=== PATIENT | male | born 1965 | race Caucasian/White ===

== ENCOUNTER → 2019-12-30 | Outpatient (CLI) | payer BC ==
--- NOTE | 2019-12-30 15:04 | Diagnostic Imaging Report ---
INDICATION: Lower back pain. COMPARISON: None. EXAMINATION: Frontal and lateral views of the lumbar spine were obtained. FINDINGS: Lumbar spine shows preservation and normal static alignment. There is no significant anterolisthesis or retrolisthesis. There is no evidence of jumped facets. Vertebral body heights are maintained. There is no acute fracture. Multilevel degenerative changes are noted, greatest at the L3-L4 level where there is intervertebral disc height loss with endplate sclerosis and osteophyte formations. IMPRESSION: 1. No acute fracture or dislocation in the lumbar spine. 2. Multilevel degenerative changes, greatest at L3-L4. Dictated by: Dictated on workstation # [id number]
== END ==
LOC: RAD FS 13:27
PROVIDERS: ATTEND Nurse Practitioner Family
DX: M47.816 Spondylosis without myelopathy or radiculopathy, lumbar region (principal)
CPT/HCPCS: 72100

== ENCOUNTER 2021-06-11 08:48 | Emergency (ER) | payer BC ==
[~2021-06-11] VITALS: Ht 177.8 cm; Wt 86.2 kg
--- NOTE | 2021-06-11 09:11 | ED Lower Extremity ---
General Stated Complaint: RT LEG MUSCLE SPASM History of Present Illness Date Seen by Provider: Jun 11, 2021 Time Seen by Provider: 08:54 Initial Comments 56 yr M with PMH of Chronic back issues, is here with c/o right sided lower back and buttock and hip pain which began on Friday evening and worsened on Friday morning. 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 Patient went to urgent care for pain control and was given a Toradol injection which did not alleviate the pain as much as he had expected. An x-ray was not done in urgent care at that time. The last time the patient had imaging of the spine, was 2 years ago. Patient states that he has difficulty bearing weight on the right lower extremity and has 10 out of 10 pain. Patient took ibuprofen 600 mg today morning, as well as gabapentin which he normally takes, and it has not relived his pain. He usually takes meloxicam for severe back pain but he has run out of that medication. Denies falls, injury, bladder or bowel dysfunction, sensory loss, saddle anesthesia, numbness, headache, visual disturbances. Allergies and Home Medications Allergies Coded Allergies: No Known Drug Allergies (Unverified , 06/11/21) Patient Home Medication List Home Medication List Reviewed: Yes Review of Systems Constitutional: no symptoms reported EENTM: no symptoms reported Respiratory: no symptoms reported Cardiovascular: no symptoms reported Gastrointestinal: no symptoms reported Genitourinary: no symptoms reported Musculoskeletal: muscle pain, muscle stiffness, muscle cramps Skin: no symptoms reported Psychiatric/Neurological: No Symptoms Reported Physical Exam Vital Signs Vital Signs - First Documented 06/11/21 06/11/21 08:55 13:13 Temp 37.4 Pulse 117 Resp 20 B/P (MAP) 181/103 (129) Pulse Ox 98 O2 Delivery Room Air Capillary Refill : Height, Weight, BMI Height: '" Weight: lbs. oz. kg; BMI Method: General Appearance: no apparent distress HEENT: PERRL/EOMI, normal ENT inspection, TMs normal, pharynx normal Neck: non-tender, full range of motion, supple, normal inspection Cardiovascular: normal peripheral pulses, regular rate, rhythm (fluctuating rate is between 60's- 90's. ) Respiratory: chest non-tender, lungs clear, normal breath sounds, no respiratory distress, no accessory muscle use Gastrointestinal: normal bowel sounds, non tender, soft, no organomegaly Back: normal inspection, no CVA tenderness, no vertebral tenderness Neurologic/Tendon: normal sensation, normal motor functions, normal tendon functions, responds to pain Neurologic/Psychiatric: temple meat cutter II-XII nml as tested, no motor/sensory deficits, alert, normal mood/affect Skin: normal color Lymphatic: no adenopathy Progress/Results/Core Measures Results/Orders My Orders Orders - KARYN MUNROE MD Lumbar Spine 2 Or 3 View (06/11/21 09:20) Pelvis With Right Hip 2-3 View (06/11/21 09:20) Oxycodone/Apap 5/325mg Tablet (Percocet (06/11/21 09:30) Lorazepam Tablet (Ativan Tablet) (06/11/21 09:51) Lorazepam Tablet (Ativan Tablet) (06/11/21 10:18) Dexamethasone Injection (Decadron Inje (06/11/21 11:30) Medications Given in ED Current Medications Medications Dose Ordered Sig/Fernanda Route Start Time Stop Time Status Last Admin Dose Admin Dexamethasone Sodium Phosphate 10 mg ONCE ONCE IV 06/11/21 11:30 06/11/21 11:31 DC 06/11/21 11:31 10 MG Vital Signs/I&O 06/11/21 06/11/21 08:55 13:13 Temp 37.4 Pulse 117 79 Resp 20 16 B/P (MAP) 181/103 (129) 135/89 Pulse Ox 98 O2 Delivery Room Air Room Air Progress Progress Note : Progress Note 1. PYRIFORMIS SYNDROME/ SCIATICA: -X-rays lumbar spine and hip does not show any acute changes. -Percocet/dexamethasone injection in the ER has given the patient relief from pain. -Advised to switch from ibuprofen to naproxen twice daily and add Tylenol 650 mg every 4 hours, lidocaine patches. Continue gabapentin and methocarbamol as prescribed by PCP. -Follow-up with PCP -There are no red flags for cord compression: no saddle anesthesia no bladder or bowel dysfunction -The patient was seen in the ED, and treated appropriately to presentation at a specific point in time. Patient is informed that there is a possibility that disease and illness can evolve and change in acuity rapidly or slowly after patient is discharged from the ER. Precautionary advice given to the patient for immediate return to ER if symptoms worsen or do not resolve, and to seek emergency care sooner rather than later. Pt also advised on the importance of PCP follow up and compliance with management and follow up plan. Pt verbally expressed understanding. Departure Impression Primary Impression: Pyriformis syndrome Qualified Codes: G57.01 - Lesion of sciatic nerve, right lower limb Additional Impression: Chronic right-sided low back pain with right-sided sciatica Disposition: HOME, SELF-CARE Condition: Improved Departure-Patient Inst. Referrals: [facility] (PCP) Primary Care Physician ALEIDA ANAYA APRN (Family) Primary Care Physician Patient Instructions: CHRONIC PAIN KARYN MUNROE MD Jun 11, 2021 09:11
[2021-06-11] MEDS ORDERED: oxyCODONE/APAP 5/325MG (PERCOCET 5) TABLET PO ONE (09:30)
[2021-06-11] MEDS ORDERED: LORazepam 1 MG (ATIVAN) TAB ONE (09:51)
--- NOTE | 2021-06-11 10:12 | Diagnostic Imaging Report ---
INDICATION: Right leg pain COMPARISON: None. FINDINGS: AP view of the pelvis and 2 dedicated radiographic views of the right hip were obtained. There is no fracture, dislocation, bone destruction, or radiopaque foreign body. The visualized pelvic osseous structures and the SI joints demonstrate no acute fracture or dislocation. There is no bone destruction or radiopaque foreign body. The surrounding soft tissue structures are unremarkable. IMPRESSION: 1. No acute fracture or dislocation in the pelvis or right hip. Dictated by: Dictated on workstation # [id number]
--- NOTE | 2021-06-11 10:17 | Diagnostic Imaging Report ---
EXAMINATION: Lumbar spine at 9:42 AM. INDICATION: Back pain. TECHNIQUE: Three views were obtained. FINDINGS: As noted on the prior exam of 12/30/2019, there is degenerative disc and bony disease at L3-L4, L4-L5, and L5-S1. The degenerative changes at these levels do not appear to have changed significantly. There is only mild degenerative disease at L1-L2 and L2-L3. There is no fracture or acute bony abnormality appreciated. There is no sign of a paraspinal mass. The sacroiliac joints are symmetrical and within normal limits. IMPRESSION: 1. There is no evidence for an acute bony abnormality. 2. The degenerative disc and bony disease involving the lower lumbar spine seen previously does not appear to have progressed significantly; however, if there is clinical concern regarding spinal stenosis or nerve root encroachment, then an MRI would be recommended for further study. Dictated by: Dictated on workstation # [id number]
[2021-06-11] MEDS ORDERED: LORazepam 0.5 MG (ATIVAN) TABLET PO STA (10:18)
[2021-06-11 13:13] VITALS: BP 135/89
== END 2021-06-11 13:13 | disposition home or self-care (01) ==
LOC: EDUNIT# 08:48 → ER FS 08:50
DX: M54.41 Lumbago with sciatica, right side (principal)
CPT/HCPCS: 72100; 73502